=== PATIENT | female | born 1995 | race Two or more races ===

== ENCOUNTER 2025-01-16 19:41 | Emergency (ER) | payer BC, SELFPAY ==
[2025-01-16 19:43] VITALS: BP 116/80; PULSE 107; RESP 18; TEMP 36.9; O2SAT 100; BMI 50.8
--- NOTE | 2025-01-16 20:32 | EDNOTE_ITS ---
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 Patient only complaint is tiredness. Patient just saw her property management accountant in [place]. Patient states she's received TXA before at another ED and it made the bleeding worse. Limitations: no limitations Related Data Home Medications ?Medication ?Instructions ?Recorded ?Confirmed ibuprofen 800 mg tablet 800 mg PO TID PRN Pain 11/1411/14/21 Allergies Allergy/AdvReac Type Severity Reaction Status Date / Time No Known Allergies Allergy Verified 01/16/25 19:48 Review of Systems Review of Systems Systems Reviewed: All systems reviewed, normal except as documented Constitutional Constitutional: Reports system reviewed and no additional complaints, except as documented, Reports as per HPI, Reports fatigue, Denies fever(s) and Denies headache(s) ENT Ears, Nose, Mouth, and Throat: Denies disequilibrium and Denies headache(s) Cardiovascular Cardiovascular: Reports system reviewed and no additional complaints, except as documented, Denies chest pain and Denies dyspnea Respiratory Respiratory: Reports system reviewed and no additional complaints, except as documented, Denies cough and Denies dyspnea Gastrointestinal Gastrointestinal: Reports system reviewed and no additional complaints, except as documented, Denies abdominal pain, Denies nausea and Denies vomiting Neurologic Neurologic: Reports system reviewed and no additional complaints, except as documented, Denies confusion, Denies disequilibrium and Denies headache(s) Psychiatric Psychiatric: Denies confusion Endocrine Endocrine: Reports fatigue Past Medical History Past Medical History NEUROLOGIC: Negative Neurological Disorders or Seizures CARDIAC: Negative Cardiac Disorders or Congestive Heart Failure RESPIRATORY: Positive Asthma; Negative Chronic Obstructive Pulmonary Disease (COPD) GASTROINTESTINAL: Negative Gastrointestinal Disorders or Hepatitis GENITOURINARY: Positive Genitourinary Disorders and Kidney Stones; Negative Renal Disease REPRODUCTIVE: Positive Endometriosis MUSCULOSKELETAL: Negative Musculoskeletal Disorders ENDOCRINE: Negative Endocrine Disorders, Diabetes Mellitus Type 1 or Diabetes Mellitus Type 2 HEMATOLOGIC: Positive Anemia; Negative Sickle Cell Disease PSYCHO/SOCIAL: Positive Anxiety OTHER HISTORY: Negative Autoimmune Disease, Falls, Blood Transfusions, Blood Transfusion Reaction (n/a), Anesthesia Reactions, Organ Transplant, Chemotherapy, Radiation Therapy, Hyperbaric Therapy, MRSA, VRSA, Vancomycin- Resistant Enterococci, Human Immunodeficiency Virus (HIV), Chicken Pox, Measles, Mumps, Rubella ([place] Measles), Pertussis, Clostridium Difficile or Cancer Family History FAMILY HISTORY: Negative Family Cardiac Disorders Surgical History SURGICAL: Negative Cardiac Surgery, Endocrine Surgery, Ear Surgery, Abdominal Surgery, Joint Replacement, Neurologic Surgery, Section or Organ Transplant Social History SMOKING STATUS: Never smoker SECOND HAND EXPOSURE: No SUBSTANCE USE: does not use ED Exam General Limitations: Present no limitations General appearance: Present alert and in no apparent distress Head Head exam: Present atraumatic Eye Eye exam: Present normal appearance, PERRL and EOMI ENT ENT exam: Present normal exam, normal oropharynx and mucous membranes moist Neck Neck exam: Present normal inspection, full ROM and trachea midline Chest Chest inspection: Present normal inspection and symmetric chest wall rise Respiratory Respiratory exam: Present normal lung sounds bilaterally Cardiovascular Cardiovascular exam: Present regular rate, normal rhythm and normal heart sounds Abdominal Exam Abdominal exam: Present soft and normal bowel sounds Extremities Exam Extremities exam: Present normal inspection and full ROM Back Exam Back exam: Present normal inspection and full ROM Neurological Exam Neurological exam: Present alert, oriented X3 and CN II-XII intact Psychiatric Psychiatric exam: Present normal affect and normal mood Skin Skin exam: Present warm, dry, intact and normal color Course Quality Measures none Orders Category Date Time Status Insert IV NOW Care 01/16/25 20:19 Active Miscellaneous Nursing Order NOW Care 01/17/25 00:27 Active CBC Stat Lab 01/16/25 21:48 Completed CMP [Comprehensive Metabolic Panel] Stat Lab 01/16/25 21:48 Completed INR [Prothrombin Time with INR] Stat Lab 01/16/25 21:48 Completed Iron Panel Stat Lab 01/16/25 21:48 Completed PTT [Partial Thromboplastin Time] Stat Lab 01/16/25 21:48 Completed Path Review Blood Smear Stat Lab 01/16/25 21:48 Completed Type and Screen Stat Lab 01/16/25 21:48 Completed prbc [Red Blood Cells] Stat Lab 01/16/25 21:48 Completed ferumoxytoL (NON-ESRD) [Feraheme Inj (NON-ESRD)] 1,020 Med 01/16/25 20:32 Discontinued mg Sodium Chloride 0.9% [Ns] 100 ml IV X1 Vital Signs Vital signs: Vital Signs Temperature 98.5 F 01/16/25 19:43 Pulse Rate 107 H 01/16/25 19:43 Respiratory Rate 18 01/16/25 19:43 Blood Pressure 116/80 01/16/25 19:43 Pulse Oximetry (%) 100 01/16/25 19:43 Oxygen Delivery Method Room Air 01/16/25 19:43 O2 at 100% on RA and WNLs Recheck / Abnormal Lab / Rx MDM Narrative MDM Narrative:: 29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 Patient only complaint is tiredness. Patient just saw her property management accountant in [place]. Patient states she's received TXA before at another ED and it made the bleeding worse. Physical exam reveals normal WOB. Patient is afebrile, calm, and alert. HgB 7.2. Iron low. Given 2 units of blood and iron infusion w/o neg reaction. 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 and heavy vaginal bleeding/cycles How is presenting disease/condition affected by chronic disease/condition?: exacerbated by Evaluation data The following diagnostics were reviewed and interpreted by me:: lab results Lab and/or radiology exams considered but not ordered:: ordered Interpretation Summary: above Medications / Prescriptions Medications or Prescriptions considered but not ordered:: ordered Medication administrations:: Medication Administration History Discontinued Medications Ferumoxytol 1,020 mg/ Sodium (Chloride) 134 mls @ 268 mls/hr IV X1 ONE Stop: 01/16/25 21:01 Last Infusion: 01/17/25 01:55 Dose: Infused Documented By: Admin: 01/17/25 00:57 Dose: 150 mls/hr Documented By: BD above Consultations Consultation(s) initiated? (list below): No Diagnosis Recheck Differential Diagnosis: encounter for medication refill, encounter for wound recheck, encounter for recheck of burn, encounter for removal of sutures, warfarin-induced coagulopathy and other (LUKASZ) Most likely diagnosis given after review of the tests above:: LUKASZ Admission Indicated Admission indicated?: not indicated Admission Request Was there a request for admission?: No Disposition Plan Disposition Plan: Discharge Discharge Attestation Discharge Attestation: The patient and all family members were given an opportunity to ask questions and understood the discharge instructions. Discharge instructions specifically effects, indications for sooner follow up or return to the emergency department, and the expected course of current diagnosis. Patient condition: Stable Discharge Plan Plan Patient Disposition: HOME (Self Care) Discharge Disposition comment: Stable Prescriptions/Referrals Prescriptions/Med Rec: No Action ibuprofen 800 mg tablet 800 mg PO TID PRN (Reason: Pain) Patient Comments: TAKE 1 TABLET BY MOUTH 3 TIMES A DAY WITH FOOD Referrals: García (PCP),MD Brandyn [Primary Care Provider] - In 1 week Problem List Clinical Impression: LUKASZ (iron deficiency anemia) Patient/Caregiver Discharge Instructions Education Materials: ED Anemia, Iron-Deficiency (Adult) Additional Instructions: Please follow-up with PCP within 24-48 hours and return immediately if symptoms worsen. Make sure to follow-up with property management accountant. Print Language: Slovenian Stand Alone Forms: Patient Portal Info Letter BIGG/SHANELLE Supervising Physician MOI Supervising Physician: Dr. Juares
[2025-01-16 22:16] LABS: Basophils # (Auto) 0.1 Thou/mm3 (0.0-0.2); Basophils % (Auto) 1 % (0-2.5); Eosinophils # (Auto) 0.1 Thou/mm3 (0.0-0.5); Eosinophils % (Auto) 1 % (0-10); Hematocrit 25.1 % (36.0-46.0); Immature Granulocytes % (Auto) 0 % (0-0); Immature Granulocytes Auto 0.03 Thou/mm3 (0.00-0.00); Lymphocytes % (Auto) 37 % (10-50); Mean Corpuscular HGB Conc 28.7 g/dl (31.0-37.0); Mean Corpuscular Hemoglobin 17.6 pg (25.0-35.0); Mean Corpuscular Volume 62 fL (80-100); Monocytes # (Auto) 0.9 Thou/mm3 (0.0-0.8); Monocytes % (Auto) 9 % (0-12); Neutrophils # (Auto) 5.8 Thou/mm3 (1.8-7.7); Neutrophils % (Auto) 53 % (37-80); Nucleated Red Blood Cell # 0.02 Thou/mm3 (0.00-0.00); Nucleated Red Blood Cell % 0 /100 WBC (0); Platelet Count 386 Thou/mm3 (140-440); RDW Standard Deviation 39.8 fL (36.4-46.3); Red Blood Count 4.08 Miln/mm3 (4.00-5.20)
[2025-01-16 22:22] LABS: Hemoglobin 7.2 g/dL (12.0-16.0); Prothrombin Time 10.9 Seconds (9.0-12.2)
[2025-01-16 22:24] LABS: Alanine Aminotransferase 16 U/L (10-49); Albumin, Serum 4.8 gm/dL (3.5-5.0); Albumin/Globulin Ratio 1.8 (1.2-2.2); Alkaline Phosphatase 81 U/L (46-116); Anion Gap 9 (7-16); Aspartate Amino Transferase 14 U/L (0-34); BUN/Creatinine Ratio 11 Ratio (12-20); Bilirubin,Total 0.3 mg/dL (0.3-1.2); Blood Urea Nitrogen 9 mg/dL (9-23); Calcium 9.9 mg/dL (8.3-10.6); Calcium (Corrected) 9.9 mg/dL (8.5-10.1); Carbon Dioxide 24.4 mMol/L (20.0-31.0); Chloride 103 mMol/L (98-107); Creatinine (Component) 0.8 mg/dL (0.6-1.3); Estimated Creatinine Clearance 130.7 mL/min (>60); Globulin 2.6 gm/dL (2.3-3.5); Glucose 105 mg/dL (74-106); Osmolality,Calculated 270 (275-295); Potassium 3.8 mMol/L (3.4-5.1); Sodium 136 mMol/L (136-145); Total Protein 7.4 gm/dL (5.7-8.2); eGFR > 60 See Note
[2025-01-16 22:51] LABS: Iron 18 mcg/dL (50-170); Percent Iron Saturation 3 % (20-55); Total Iron Binding Capacity 468 mcg/dL (250-425); Unsaturated Iron Binding 450 (225-295)
[2025-01-16 23:52] VITALS: BP 110/61; PULSE 86; RESP 19; TEMP 36.9; O2SAT 100
[2025-01-17] VITALS (11 sets, daily range): BP systolic 102–134; BP diastolic 58–84; PULSE 75–97; RESP 16–19; TEMP 36.3–36.9; O2SAT 98–100; BMI 50.8
[2025-01-17 00:09] LABS: Path Review Blood Smear Sent to Pathologist
[2025-01-17] MEDS: [UNRECOGNIZED DRUG - REMARK] 150 MG IV (00:57)
--- NOTE | 2025-01-17 00:58 | PC.NURSE ---
running iron infusion at 150 ml/hr as we made multiple attempts for iv only available is 22g to right forearm.
== END 2025-01-17 07:48 | disposition home or self-care (01) ==
PROVIDERS: Physician Assistant; Emergency Provider Emergency Medicine; PCP Family Medicine
DX: D50.9 Iron deficiency anemia, unspecified (principal)
CPT/HCPCS: 36415; 36430; 80053; 83540; 83550; 85025; 85610; 85730; 86850; 86900; 86901; 86923; 96365; 99285; J7050; P9016; Q0138

== ENCOUNTER 2025-07-16 21:23 | Emergency (ER) | payer BC, SELFPAY ==
[2025-07-16 21:25] VITALS: BMI 43.3
[2025-07-16 21:32] VITALS: BP 125/82; PULSE 98; RESP 19; TEMP 36.6; O2SAT 99
--- NOTE | 2025-07-16 22:06 | XR_ITS ---
Examination: CT brain head without contrast. 2-D sagittal coronal reconstructions Date and time of exam: July 16, 2025, 1022 hours INDICATIONS: Headache beginning 1 week ago CTDI: vol (mGy): 48.8 DLP: (mGycm): 915 Technique: Multiple CT axial sections of the brain have been obtained, 5 mm slice thickness. Contrast has not been administered. 2-D sagittal, coronal reconstructions have been obtained Low dose protocols were performed. One or more of the following dose reduction techniques were used; automated exposure control, adjustment of the mA and/or KV according to patient size, use of iterative reconstruction technique. Findings: No significant ventricular enlargement. Intra-axial or extra-axial hemorrhage density is not seen. No mass effect or midline shift Basal cisterns are not remarkable. Fourth ventricle is midline. Cranial vault intact. Impression: Negative for acute hemorrhage, mass effect or midline shift Advise clinical correlation and follow-up accordingly
--- NOTE | 2025-07-16 22:38 | EDNOTE_ITS ---
ED Headache RME/HPI General Chief Complaint: Headache Stated Complaint: LEVY FOR A MONTH, VOMITING TODAY. Time Seen by Provider: 07/16/25 22:06 Arrival date/time: 07/16/25 21:23 30F with history of asthma, anemia, endometriosis, and gastric sleeve surgery presents to ED with LEVY for 1 month that got worse in the past week with some N/V and light sensitivity today. Patient has only been taking Tylenol because she hasn't been cleared to taken NSAIDs by surgery team. Patient has needed blood transfusions for anemia, but states recent blood work showed normal HgB. Patient also hasn't been bleeding as much. Limitations: no limitations Related Data Home Medications ?Medication ?Instructions ?Recorded ?Confirmed ibuprofen 800 mg tablet 800 mg PO TID PRN Pain 11/1411/14/21 Allergies Allergy/AdvReac Type Severity Reaction Status Date / Time No Known Allergies Allergy Verified 07/16/25 21:24 Review of Systems Review of Systems Systems Reviewed: All systems reviewed, normal except as documented Constitutional Constitutional: Reports as per HPI and Reports headache(s) Eyes Eyes: Reports as per HPI and Reports photophobia ENT Ears, Nose, Mouth, and Throat: Reports headache(s) Gastrointestinal Gastrointestinal: Reports as per HPI, Reports nausea and Reports vomiting Neurologic Neurologic: Reports headache(s) Past Medical History Past Medical History NEUROLOGIC: Negative Neurological Disorders or Seizures CARDIAC: Positive Heart Murmur and Hypercholesterolemia; Negative Cardiac Disorders or Congestive Heart Failure RESPIRATORY: Positive Asthma; Negative Chronic Obstructive Pulmonary Disease (COPD) GASTROINTESTINAL: Negative Gastrointestinal Disorders or Hepatitis GENITOURINARY: Positive Genitourinary Disorders and Kidney Stones; Negative Renal Disease REPRODUCTIVE: Positive Endometriosis MUSCULOSKELETAL: Negative Musculoskeletal Disorders ENDOCRINE: Negative Endocrine Disorders, Diabetes Mellitus Type 1 or Diabetes Mellitus Type 2 HEMATOLOGIC: Positive Anemia; Negative Sickle Cell Disease PSYCHO/SOCIAL: Positive Anxiety OTHER HISTORY: Negative Autoimmune Disease, Falls, Blood Transfusions, Blood Transfusion Reaction, Anesthesia Reactions, Organ Transplant, Chemotherapy, Radiation Therapy, Hyperbaric Therapy, MRSA, VRSA, Vancomycin-Resistant Enterococci, Human Immunodeficiency Virus (HIV), Chicken Pox, Measles, Mumps, Rubella ([place] Measles), Pertussis, Clostridium Difficile or Cancer Family History FAMILY HISTORY: Negative Family Cardiac Disorders Surgical History SURGICAL: Negative Cardiac Surgery, Endocrine Surgery, Ear Surgery, Abdominal Surgery, Joint Replacement, Neurologic Surgery, Section or Organ Transplant Social History SMOKING STATUS: Never smoker SECOND HAND EXPOSURE: No SUBSTANCE USE: does not use ED Exam General Limitations: Present no limitations General appearance: Present alert and in no apparent distress Head Head exam: Present atraumatic Eye Eye exam: Present normal appearance, PERRL and EOMI Neck Neck exam: Present normal inspection, full ROM and trachea midline Chest Chest inspection: Present normal inspection and symmetric chest wall rise Neurological Exam Neurological exam: Present alert and oriented X3 Psychiatric Psychiatric exam: Present normal affect and normal mood Skin Skin exam: Present warm, dry, intact and normal color Course Quality Measures none Orders Category Date Time Status CT head/brain wo con Stat Exams 07/16/25 22:06 Completed HIV (1&2) Antibody Rapid Stat Lab 07/17/25 00:26 Completed Hepatitis B Surface Antigen Stat Lab 07/17/25 00:26 Completed Hepatitis C Antibody Stat Lab 07/17/25 00:26 Completed Metoclopramide [Reglan] Med 07/16/25 22:06 Discontinued 10 mg PO X1 ONE SUMAtriptan INJ [Imitrex Inj] Med 07/16/25 22:06 Discontinued 6 mg SC X1 ONE Vital Signs Vital signs: Vital Signs Temperature 97.9 F 07/16/25 21:32 Pulse Rate 98 07/16/25 21:32 Respiratory Rate 19 07/16/25 21:32 Blood Pressure 125/82 07/16/25 21:32 Pulse Oximetry (%) 99 07/16/25 21:32 Oxygen Delivery Method Room Air 07/16/25 21:32 O2 at 99% on RA and WNLs Headache MDM Narrative MDM Narrative:: 30F with history of asthma, anemia, endometriosis, and gastric sleeve surgery presents to ED with LEVY for 1 month that got worse in the past week with some N/V and light sensitivity today. Patient has only been taking Tylenol because she hasn't been cleared to taken NSAIDs by surgery team. Patient has needed blood transfusions for anemia, but states recent blood work showed normal HgB. Patient also hasn't been bleeding as much. Physical exam reveals normal pupil response and EOM. Speech normal. Patient is afebrile, calm, and alert. CT unremarkable. During administration of meds, RN accidentally poked herself while giving subQ meds. Patient consented to HIV, hep testing. Tests were negative. Patient eloped prior to DC. Patient data External records reviewed:: [facility] previous records Clinical information provided by:: patient Social determinants that could affect healthcare access:: none Patient has the following chronic illnesses:: asthma, anemia, endometriosis, and gastric sleeve surgery How is presenting disease/condition affected by chronic disease/condition?: exacerbated by Evaluation data The following diagnostics were reviewed and interpreted by me:: radiology exam(s) Lab and/or radiology exams considered but not ordered:: ordered Interpretation Summary: above Medications / Prescriptions Medications or Prescriptions considered but not ordered:: ordered Medication administrations:: Medication Administration History Discontinued Medications Metoclopramide HCl (Metoclopramide 5 Mg Tablet) 10 mg PO X1 ONE Stop: 07/16/25 22:07 Last Admin: 07/16/25 23:35 Dose: 10 mg Documented By: ALYCIA Sumatriptan Succinate (Sumatriptan Inj 6 Mg/0.5 Ml Vial) 6 mg SC X1 ONE Stop: 07/16/25 22:07 Last Admin: 07/16/25 23:35 Dose: 6 mg Documented By: ALYCIA above Consultations Consultation(s) initiated? (list below): No Diagnosis Differential diagnosis headache: migraine, tension headache, subarachnoid hemorrhage, headache, meningitis, sinusitis, postconcussion syndrome and other (lab work) Most likely diagnosis given after review of the tests above:: migraine and lab work Admission Indicated Admission indicated?: not indicated Admission Request Was there a request for admission?: No Disposition Plan Disposition Plan: other (specify) (eloped) Discharge Plan Plan Patient Disposition: Elopement Prescriptions/Referrals Prescriptions/Med Rec: No Action ibuprofen 800 mg tablet 800 mg PO TID PRN (Reason: Pain) Patient Comments: TAKE 1 TABLET BY MOUTH 3 TIMES A DAY WITH FOOD Referrals: García (PCP)Brandyn MD [Primary Care Provider, Family Practice] - In 1 week Problem List Clinical Impression: Migraine, Encounter for pre-operative laboratory testing Patient/Caregiver Discharge Instructions Print Language: Gambian BIGG/SHANELLE Supervising Physician BIGG/SHANELLE Supervising Physician: Dr. Kohler
[2025-07-16] MEDS: METOCLOPRAMIDE 5 MG TABLET 10 MG PO (23:35)
[2025-07-16] MEDS: SUMAtriptan INJ 6 MG/0.5 ML VIAL SC (23:35)
[2025-07-17 00:34] VITALS: BP 129/85; PULSE 85; RESP 18; TEMP 36.9; O2SAT 100
[2025-07-17 00:55] LABS: HIV (1&2) Antibody Rapid Non-Reactive
[2025-07-17 02:15] LABS: Hepatitis B Surface Antigen Non Reactive (Non React); Hepatitis C Antibody Non Reactive (Non React)
--- NOTE | 2025-07-17 02:39 | PC.NURSE ---
ELOPED SEEN BY SECURITY
== END 2025-07-17 02:39 | disposition left against medical advice (07) ==
LOC: SERX 07-17 00:29
PROVIDERS: Physician Assistant; Emergency Provider Emergency Medicine; PCP Family Medicine
DX: Z01.812 Encounter for preprocedural laboratory examination (principal); G43.909 Migraine, unspecified, not intractable, without status migrainosus
CPT/HCPCS: 36415; 70450; 86703; 86803; 87340; 99283; J3030; A9270

== ENCOUNTER → 2025-07-21 | Outpatient (CLI) | payer BC, SELFPAY ==
[2025-07-21 11:45] LABS: Collection Type, Urine Clean Catch
[2025-07-21 12:04] LABS: Basophils # (Auto) 0.0 Thou/mm3 (0.0-0.2); Basophils % (Auto) 1 % (0-2.5); Eosinophils # (Auto) 0.1 Thou/mm3 (0.0-0.5); Eosinophils % (Auto) 2 % (0-10); Hematocrit 35.9 % (36.0-46.0); Hemoglobin 11.0 g/dL (12.0-16.0); Immature Granulocytes Auto 0.01 Thou/mm3 (0.00-0.00); Lymphocytes # (Auto) 2.2 Thou/mm3 (1.0-4.8); Lymphocytes % (Auto) 36 % (10-50); Mean Corpuscular HGB Conc 30.6 g/dl (31.0-37.0); Mean Corpuscular Hemoglobin 24.0 pg (25.0-35.0); Mean Corpuscular Volume 78 fL (80-100); Monocytes # (Auto) 0.5 Thou/mm3 (0.0-0.8); Monocytes % (Auto) 8 % (0-12); Neutrophils # (Auto) 3.3 Thou/mm3 (1.8-7.7); Neutrophils % (Auto) 53 % (37-80); Nucleated Red Blood Cell # 0.00 Thou/mm3 (0.00-0.00); Nucleated Red Blood Cell % 0 /100 WBC (0); Platelet Count 340 Thou/mm3 (140-440); RDW Standard Deviation 40.2 fL (36.4-46.3); Red Blood Count 4.58 Miln/mm3 (4.00-5.20); White Blood Count 6.1 Thou/mm3 (3.6-11.0)
[2025-07-21 12:10] LABS: Bacteria,Urine Rare; Bilirubin,Urine 1+ (Negative); Blood,Urine 1+ (Negative); Color,Urine Yellow (Lt Yel-Yel); Glucose, Urine Negative (Negative); Ketones,Urine Trace (Negative); Leukocyte Esterase,Urine Positive (Negative); Nitrite,Urine Negative (Negative); PH,Urine 6.0 (5.0-7.0); Protein,Urine 1+ (Neg - Trace); RBC,Urine 6 /hpf (0-3); Specific Gravity,Urine 1.032 (1.001-1.035); Squamous Epithelial Cell,Urine 3 /hpf (0-5); Urobilinogen,Urine 2.0 mg/dL (0.0-1.0); WBC,Urine 21 /hpf (0-5)
[2025-07-21 12:15] LABS: Alanine Aminotransferase 51 U/L (10-49); Albumin, Serum 4.5 gm/dL (3.5-5.0); Albumin/Globulin Ratio 1.4 (1.2-2.2); Alkaline Phosphatase 81 U/L (46-116); Anion Gap 11 (7-16); Aspartate Amino Transferase 36 U/L (0-34); BUN/Creatinine Ratio 11 Ratio (12-20); Bilirubin,Total 0.3 mg/dL (0.3-1.2); Blood Urea Nitrogen 9 mg/dL (9-23); Calcium 9.7 mg/dL (8.3-10.6); Calcium (Corrected) 9.7 mg/dL (8.5-10.1); Carbon Dioxide 26.1 mMol/L (20.0-31.0); Cardiac Risk Estimate 4.0 RATIO (3.7-5.6); Chloride 106 mMol/L (98-107); Cholesterol 202 mg/dL (132-200); Creatinine (Component) 0.8 mg/dL (0.6-1.3); Globulin 3.3 gm/dL (2.3-3.5); Glucose 92 mg/dL (74-106); HDL Cholesterol 51 mg/dL (40-60); LDL Cholesterol,Calculated 121 mg/dL (0-130); Osmolality,Calculated 283 (275-295); Potassium 3.9 mMol/L (3.4-5.1); Sodium 143 mMol/L (136-145); Thyroid Stimulating Hormone 1.39 uIU/mL (0.55-4.78); Total Protein 7.8 gm/dL (5.7-8.2); Triglycerides 149 mg/dL (30-150); eGFR > 60 See Note
[2025-07-21 12:17] LABS: Glucose Estimated Average 105 mg/dL (80-131); Hemoglobin A1C 5.3 % Hgb (4.8-6.0)
[2025-07-21 12:27] LABS: Clarity,Urine Hazy (Clear/Hazy); Culture Indicated,Urine Yes
[2025-07-21 12:44] LABS: Sed Rate (ESR) 14 mm/hr (0-20)
[2025-07-21 13:57] LABS: Vitamin D 25 Hydroxy Total 22.0 ng/mL (7.3-40.2)
== END | disposition home or self-care (01) ==
LOC: COPL 11:11
PROVIDERS: PCP Family Medicine; Referring Provider Family Medicine; Visit Provider Family Medicine
DX: Z00.00 Encounter for general adult medical examination without abnormal findings (principal); M08.00 Unspecified juvenile rheumatoid arthritis of unspecified site; R51.9 Headache, unspecified; Z13.0 Encounter for screening for diseases of the blood and blood-forming organs and certain disorders involving the immune mechanism; Z12.9 Encounter for screening for malignant neoplasm, site unspecified; Z13.21 Encounter for screening for nutritional disorder; Z13.1 Encounter for screening for diabetes mellitus; Z98.84 Bariatric surgery status
CPT/HCPCS: 36415; 80053; 80061; 81001; 82306; 83036; 84443; 85025; 85652; 87077; 87086; 87186